=== PATIENT | male | born 1980 | race Caucasian/White ===

== ENCOUNTER 2022-02-22 20:34 | Emergency (ER) | payer MEDICAID, OTHER ==
[~2022-02-22] VITALS: Ht 182.9 cm; Wt 81.8 kg
[2022-02-22 20:34] VITALS: BP 124/82
[2022-02-23] MEDS ORDERED: CLIN150C8 PO (05:41)
[2022-02-23] MEDS ORDERED: CLINDAMYCIN HCL 150 MG CAP PO ONE (05:45)
== END 2022-02-23 09:50 | disposition home or self-care (01) ==
LOC: ER 20:34
DX: L02.412 Cutaneous abscess of left axilla (principal)

== ENCOUNTER 2022-06-04 03:06 | Emergency (ER) | payer MEDICAID, OTHER ==
[~2022-06-04] VITALS: Ht 182.9 cm; Wt 81.0 kg
[~2022-06-04 03:06] MED LIST: CLIN150C8 PO
[2022-06-04] MEDS ORDERED: IBUP800T27 PO (04:56)
[2022-06-04] MEDS ORDERED: CYCL-837 PO (04:57)
[2022-06-04] MEDS ORDERED: KETOROLAC TROMETH 60MG/2ML VIAL IM ONE (06:00)
[2022-06-04 07:25] VITALS: BP 119/54
== END 2022-06-04 07:29 | disposition home or self-care (01) ==
LOC: ER 03:06
DX: S16.1XXA Strain of muscle, fascia and tendon at neck level, initial encounter (principal); S39.012A Strain of muscle, fascia and tendon of lower back, initial encounter; V43.52XA Car driver injured in collision with other type car in traffic accident, initial encounter; Y93.89 Activity, other specified; Y92.488 Other paved roadways as the place of occurrence of the external cause; Y99.8 Other external cause status
CPT/HCPCS: 70450; 72125; 72128; 72131; 96372; 99284; J1885